=== PATIENT | female | born 1980 | race Asian ===

== ENCOUNTER 2019-08-05 23:21 | Emergency (ER) | payer MEDICAID ==
[~2019-08-05] VITALS: Ht 162.6 cm; Wt 56.0 kg
[2019-08-06 00:39] LABS: BASOPHILS % 1.1 % (0.0-2.0); HEMOGLOBIN. 12.4 g/dL (12.0-16.0); LYMPHOCYTES % 18.2 % (20.0-50.0); MEAN CORPUSCULAR HEMOGLOBIN 31.8 pg (28.0-32.0); MEAN CORPUSCULAR VOLUME 95.3 fL (81.0-99.0); MEAN PLATELET VOLUME 8.8 fl (7.4-10.4); MONOCYTES % 7.5 % (2.0-8.0); NEUTROPHILS % 69.2 % (40.0-76.0); PLATELET 182 x1000/uL (130-400); RED BLOOD CELL COUNT 3.89 mill/uL (4.2-5.4); RED CELL DISTRIBUTION WIDTH 14.8 % (11.6-14.6)
[2019-08-06 00:48] LABS: CHLORIDE 107 mEq/L (98-107)
[2019-08-06 00:52] LABS: ETHANOL BLOOD < 10 mg/dL
[2019-08-06 00:59] LABS: HCG SCREEN NEGATIVE
[2019-08-06] MEDS ORDERED: LORAZEPAM 2MG/ML CPJ IM ONE (01:30)
[2019-08-06 02:08] LABS: CLARITY URINE CLEAR (CLEAR); COLOR URINE YELLOW (YELLOW); KETONES URINE NEGATIVE (NEGATIVE); LEUKOCYTE ESTERASE URINE 2+ (NEGATIVE); NITRITE URINE NEGATIVE (NEGATIVE); OCCULT BLOOD URINE 1+ (NEGATIVE); PH URINE 7.5 (4.5-8.0); PROTEIN URINE NEGATIVE (NEGATIVE); SPECIFIC GRAVITY URINE 1.024 (1.005-1.030)
[2019-08-06 02:35] LABS: *AMPHETAMINES SCREEN URINE NEGATIVE (NEGATIVE); *BARBITURATES SCREEN URINE NEGATIVE (NEGATIVE)
[2019-08-06 02:36] LABS: *BENZODIAZEPINES SCREEN URINE NEGATIVE (NEGATIVE); CANNABINOID URINE SCREEN NEGATIVE (NEGATIVE); METHADONE URINE SCREEN NEGATIVE (NEGATIVE); OPIATES URINE SCREEN NEGATIVE (NEGATIVE); PHENCYCLIDINE URINE SCREEN NEGATIVE (NEGATIVE)
[2019-08-06 02:42] LABS: *COCAINE SCREEN URINE NEGATIVE (NEGATIVE)
[2019-08-06] MEDS ORDERED: QUETIAPINE FUMARATE 50MG TABLET PO SCH (02:45)
[2019-08-06] MEDS ORDERED: LORAZEPAM 1MG TABLET PO ONE (02:45)
[2019-08-06] MEDS ORDERED: NITROFURANTOIN 100MG M/M CAPSULE PO ONE (03:30)
[2019-08-06] MEDS ORDERED: NITROFURANTOIN 100MG M/M CAPSULE PO SCH (17:00)
[2019-08-06 21:17] VITALS: BP 112/83
== END 2019-08-06 21:42 ==
LOC: ER 23:21
DX: F23 Brief psychotic disorder (principal); N39.0 Urinary tract infection, site not specified; R45.851 Suicidal ideations; Z91.14 Patient's other noncompliance with medication regimen
CPT/HCPCS: 36415; 80053; 80305; 80307; 80320; 80329; 81003; 81025; 84703; 85025; 87077; 87086; 87186; 96372; 99285; J2060; Z7610; G0480